=== PATIENT | male | born 1955 | race Caucasian/White ===

== ENCOUNTER 2017-05-02 15:55 | Emergency (ER) | payer MEDICARE ==
[~2017-05-02] VITALS: Ht 170.2 cm; Wt 84.1 kg
[~2017-05-02 15:55] MED LIST: IBUP800T PO
[2017-05-02 15:59] VITALS: BP 132/75
[2017-05-02] MEDS ORDERED: CARBAMIDE PEROXIDE EAR DROPS 6.5%, 15ML LEFT EAR ONE (16:30)
[2017-05-02] MEDS ORDERED: CARBAMIDE PEROXIDE EAR DROPS 6.5%, 15ML ONE (16:34)
== END 2017-05-02 18:18 | disposition home or self-care (01) ==
LOC: ED 18:10
DX: H65.01 Acute serous otitis media, right ear (principal); H66.002 Acute suppurative otitis media without spontaneous rupture of ear drum, left ear; H60.12 Cellulitis of left external ear; Z87.891 Personal history of nicotine dependence
CPT/HCPCS: 69210; 99284

== ENCOUNTER 2017-05-25 08:36 | Emergency (ER) | payer MEDICARE ==
[~2017-05-25] VITALS: Ht 170.2 cm; Wt 85.0 kg
[2017-05-25] MEDS ORDERED: ONDANSETRON 2MG/ML, 2ML IVPush ONE (09:30)
[2017-05-25] MEDS ORDERED: SODIUM CHLORIDE FLUSH 10ML SYR IVF ONE (09:30)
[2017-05-25] MEDS ORDERED: SODIUM CHLORIDE 0.9% 1,000ML IVBOLUS ONE (09:30)
[2017-05-25] MEDS ORDERED: MORPHINE SULFATE 4 MG/ML, 1ML ONE ×2 (09:37→11:08)
[2017-05-25] MEDS ORDERED: ONDANSETRON 2MG/ML, 2ML ONE (09:37)
[2017-05-25] MEDS: MORPHINE SULFATE 4 MG/ML, 1ML IVPush PRN ×2 (09:40→11:10)
[2017-05-25 09:51] LABS: BLOOD UREA NITROGEN 13 mg/dL (7-18)
[2017-05-25 09:52] LABS: ASPARTATE AMINO TRANSFERASE 18 U/L (15-37)
[2017-05-25 13:03] VITALS: BP 111/71
[2017-05-25] MEDS ORDERED: OMNIPAQUE 350 MG/ML, 100ML BOTTLE ONE (16:35)
== END 2017-05-25 13:05 | disposition home or self-care (01) ==
LOC: ED 10:57
DX: R10.31 Right lower quadrant pain (principal); Z87.891 Personal history of nicotine dependence; G89.29 Other chronic pain; M54.9 Dorsalgia, unspecified
CPT/HCPCS: 36415; 74177; 80053; 81003; 85025; 93005; 96361; 96374; 96375; 96376; 99285; J2405; J7030; Q9967

== ENCOUNTER 2017-07-04 01:38 | Emergency (ER) | payer MEDICARE ==
[~2017-07-04] VITALS: Ht 170.2 cm; Wt 88.1 kg
[2017-07-04] MEDS ORDERED: ALBUTEROL/IPRATROPIUM 2.5MG/0.5MG, 3 ML ONE (02:28)
[2017-07-04 02:30] LABS: HEMATOCRIT 44.8 % (39.2-51.8); HEMOGLOBIN 14.8 g/dL (13.7-18.0); WHITE BLOOD COUNT 4.8 x10^3/uL (3.4-10)
[2017-07-04] MEDS ORDERED: ALBUTEROL/IPRATROPIUM 2.5MG/0.5MG, 3 ML NPPB ONE (02:30)
[2017-07-04 02:44] LABS: BLOOD UREA NITROGEN 15 mg/dL (7-18)
[2017-07-04 02:53] LABS: IS PT STATUS REG ER OR PRE ER? YES
[2017-07-04 03:39] VITALS: BP 128/70
== END 2017-07-04 03:41 | disposition home or self-care (01) ==
LOC: ED 02:10
DX: J20.8 Acute bronchitis due to other specified organisms (principal)
CPT/HCPCS: 36415; 71020; 80048; 82040; 83880; 84484; 85025; 93005; 94640; 99285; J7512; J7620

== ENCOUNTER 2017-08-07 10:01 | Day surgery (SDC) | payer MEDICARE ==
[~2017-08-07] VITALS: Ht 170.2 cm; Wt 84.0 kg
[~2017-08-07 10:01] MED LIST changes: +IBUP-1223 PO; -IBUP800T PO
[2017-08-07] MEDS ORDERED: AMOX200S2 PO (10:26)
[2017-08-07] MEDS ORDERED: MALOXICAM PO (10:26)
[2017-08-07] MEDS ORDERED: CYCL5TAB PO (10:26)
[2017-08-07] MEDS ORDERED: GABA300C10 PO (10:26)
[2017-08-07] MEDS: LACTATED RINGERS 1,000 ML IV SCH ×2 (10:34→10:54)
[2017-08-07 10:41] VITALS: BP 127/89
[2017-08-07] MEDS ORDERED: BUPIVACAINE/PF 0.5% ONE (12:14)
[2017-08-07] MEDS ORDERED: EPINEPHRINE 1 MG/ML, 1ML ONE (12:14)
[2017-08-07] MEDS ORDERED: MIDAZOLAM 1 MG/ML, 2ML ONE ×2 (12:42)
[2017-08-07] MEDS ORDERED: BUPIVACAINE/PF-EPI 0.25% 1:200K ONE (12:46)
[2017-08-07] MEDS ORDERED: KETOROLAC 30 MG/1 ML ONE (12:47)
[2017-08-07] MEDS ORDERED: ONDANSETRON 2MG/ML, 2ML ONE (12:47)
[2017-08-07] MEDS ORDERED: PROPOFOL 10 MG/ML, 20ML ONE (12:47)
[2017-08-07] MEDS ORDERED: FENTANYL PF 100 MCG/2ML ONE ×2 (12:47→14:27)
[2017-08-07] MEDS ORDERED: HYDROmorphone 2 MG/ML, 1ML ONE (12:47)
[2017-08-07] MEDS ORDERED: ROCURONIUM 10 MG/ML ONE (12:47)
[2017-08-07] MEDS ORDERED: DEXAMETHASONE 4 MG/ML, 1ML ONE (12:47)
[2017-08-07] MEDS ORDERED: CEFAZOLIN 1,000 MG ONE (12:47)
[2017-08-07] MEDS ORDERED: ACETAMINOPHEN 325 MG TABLET PO PRN (13:30)
[2017-08-07] MEDS ORDERED: FENTANYL PF 100 MCG/2ML IV PRN (13:30)
[2017-08-07] MEDS ORDERED: OXYcodone 5 MG/5 ML ORAL.SOL UDC PO PRN (13:30)
[2017-08-07] MEDS ORDERED: ONDANSETRON 2MG/ML, 2ML IVPush PRN (13:30)
[2017-08-07] MEDS ORDERED: ALBUTEROL SULFATE 2.5 MG/3 ML NPPB PRN (13:30)
[2017-08-07] MEDS ORDERED: LABETALOL 5MG/ML, 20ML IV PRN (13:30)
[2017-08-07] MEDS ORDERED: LORazepam 2 MG/ML, 1ML IVPush PRN (13:30)
[2017-08-07] MEDS ORDERED: PROMETHAZINE 25 MG/ML, 1ML IV PRN (13:30)
[2017-08-07] MEDS ORDERED: hydrALAzine 20 MG/ML, 1ML IV PRN (13:30)
[2017-08-07] MEDS ORDERED: MEPERIDINE/PF 25MG/0.5ML IVPush PRN (13:30)
[2017-08-07] MEDS ORDERED: HYDROmorphone 1 MG/ML, 1ML IV PRN (13:30)
[2017-08-07] MEDS ORDERED: ACETAMINOPHEN 650 MG/20.3 ML UDC ONE (14:27)
[2017-08-07] MEDS ORDERED: OXYcodone 5 MG/5 ML ORAL.SOL UDC ONE (14:28)
[2017-08-07] MEDS ORDERED: ACETAMINOPHEN 325 MG TABLET ONE (14:28)
== END 2017-08-07 17:25 ==
LOC: OUT 10:01
PROVIDERS: ATTEND Surgery
DX: K40.90 Unilateral inguinal hernia, without obstruction or gangrene, not specified as recurrent (principal); J44.9 Chronic obstructive pulmonary disease, unspecified; Z88.6 Allergy status to analgesic agent
CPT/HCPCS: 49650; C1781; J0171; J0690; J1100; J1170; J1885; J2250; J2405; J2704; J3490; J7120; J3010

== ENCOUNTER 2017-09-04 12:10 | Emergency (ER) | payer MEDICARE ==
[~2017-09-04] VITALS: Ht 170.2 cm; Wt 84.0 kg
[~2017-09-04 12:10] MED LIST changes: +AMOX200S2 PO; +CYCL5TAB PO; +GABA300C10 PO; +MALOXICAM PO
[2017-09-04 13:57] LABS: HEMATOCRIT 44.5 % (39.2-51.8); HEMOGLOBIN 14.9 g/dL (13.7-18.0); WHITE BLOOD COUNT 4.9 x10^3/uL (3.4-10)
[2017-09-04] MEDS ORDERED: ONDANSETRON 2MG/ML, 2ML IVPush ONE (14:00)
[2017-09-04] MEDS ORDERED: SODIUM CHLORIDE 0.9% 1,000ML IVBOLUS ONE (14:00)
[2017-09-04] MEDS ORDERED: SODIUM CHLORIDE FLUSH 10ML SYR IVF ONE (14:00)
[2017-09-04] MEDS ORDERED: ONDANSETRON 2MG/ML, 2ML ONE (14:06)
[2017-09-04 14:08] LABS: BLOOD UREA NITROGEN 10 mg/dL (7-18)
[2017-09-04] MEDS ORDERED: MORPHINE SULFATE 4 MG/ML, 1ML ONE (14:09)
[2017-09-04] MEDS: MORPHINE SULFATE 4 MG/ML, 1ML IVPush PRN ×2 (14:20→16:37)
[2017-09-04] MEDS ORDERED: morphine SULFATE 10 MG/ML, 1ML ONE ×2 (16:28→19:11)
[2017-09-04] MEDS ORDERED: OMNIPAQUE 350 MG/ML, 100ML BOTTLE ONE (19:01)
[2017-09-04 19:39] VITALS: BP 126/81
[2017-09-04] MEDS ORDERED: MORPHINE SULFATE 4 MG/ML, 1ML IVPush ONE (20:30)
== END 2017-09-04 20:59 | disposition home or self-care (01) ==
LOC: ED 17:13
DX: K57.92 Diverticulitis of intestine, part unspecified, without perforation or abscess without bleeding (principal); M41.9 Scoliosis, unspecified; Z87.891 Personal history of nicotine dependence
CPT/HCPCS: 36415; 74020; 74177; 80048; 81003; 82040; 85025; 96361; 96374; 96375; 96376; 99285; J2405; J7030; Q9967

== ENCOUNTER 2019-09-11 08:50 | Emergency (ER) | payer MEDICARE ==
[~2019-09-11] VITALS: Ht 170.2 cm; Wt 85.0 kg
[~2019-09-11 08:50] MED LIST changes: +CIPR500T87 PO; +METR500T PO; +OXYC-302 PO
[2019-09-11 09:04] VITALS: BP 132/83
[2019-09-11] MEDS ORDERED: KETOROLAC 30 MG/1 ML ONE (09:24)
--- NOTE | 2019-09-11 09:26 | NUR ---
PATIENT BROUGHT BACK FORM TRIAGE WITH CHIEF COMPLAINT OF LEFT ELBOW PAIN AFTER FALLING OUT OF BED. NO OTHER COMPLAINTS AT THIS TIME. THE PATIENT IS ALERT, ORIENTED, WARM AND DRY.
[2019-09-11] MEDS ORDERED: KETOROLAC 30 MG/1 ML IM ONE (09:30)
== END 2019-09-11 10:22 | disposition home or self-care (01) ==
LOC: ED 10:00
DX: M77.8 Other enthesopathies, not elsewhere classified (principal); Z87.891 Personal history of nicotine dependence; Z86.19 Personal history of other infectious and parasitic diseases; W19.XXXA Unspecified fall, initial encounter; Y93.89 Activity, other specified; Y92.009 Unspecified place in unspecified non-institutional (private) residence as the place of occurrence of the external cause; Y99.8 Other external cause status
CPT/HCPCS: 73080; 96372; 99283; J1885